=== PATIENT | male | born 1955 | race Caucasian/White ===

== ENCOUNTER 2024-03-07 12:59 | Inpatient (IN) | payer MEDICARE, OTHER ==
[~2024-03-07] VITALS: Ht 177.8 cm; Wt 162.4 kg
[~2024-03-07 12:59] MED LIST: LIDOCAINE HCL 2% LOCAL INJ 5 ML SDV VIAL INJ ONE; PROPOFOL IV EMULSION 10 MG/ML 20 ML VIAL ONE
[2024-03-07 15:13] LABS: BASOPHILS % 0.2 % (0.0-1.0); EOSINOPHILS # (AUTO) 0.1 (0.0-0.4); EOSINOPHILS % 1.1 % (0.0-6.0); HEMATOCRIT 38.4 % (38.2-49.6); HEMOGLOBIN 11.3 g/dL (14.0-18.0); LYMPHOCYTES % 8.9 % (18.0-39.1); MEAN CORPUSCULAR HEMOGLOBIN 27.4 pg (28-32); MEAN CORPUSCULAR HGB CONC 29.4 g/dL (31-35); MEAN CORPUSCULAR VOLUME 93.2 fL (81-99); MONOCYTES # (AUTO) 0.8 (0.2-0.8); NEUTROPHILS # (AUTO) 9.4 (2.1-6.9); NEUTROPHILS % 81.8 % (38.7-80.0); PLATELET COUNT 227 x10e3/uL (140-360); RED BLOOD COUNT 4.12 x10e6/uL (4.3-5.7); RED CELL DISTRIBUTION WIDTH 14.5 % (11.7-14.4); WHITE BLOOD COUNT 11.47 x10e3/uL (4.8-10.8)
[2024-03-07 15:24] LABS: INR 2.14; PROTHROMBIN TIME 25.1 seconds (11.9-14.5)
[2024-03-07 15:36] LABS: ALBUMIN 3.4 g/dL (3.5-5.0); ALBUMIN/GLOBULIN RATIO 0.9 (0.8-2.0); ANION GAP 14.7 mmol/L (8-16); BILIRUBIN,TOTAL 0.6 mg/dL (0.2-1.2); CALCIUM 8.7 mg/dL (8.4-10.2); CREATININE, SERUM 1.77 mg/dL (0.72-1.25); POTASSIUM 4.7 mmol/L (3.5-5.1)
[2024-03-07] MEDS: HYDROMORPHONE 1MG/1ML INJ IV PRN (15:36)
[2024-03-07] MEDS: Morphine 4mg INJECTION 4 MG/ML INJ IV PRN (15:39)
[2024-03-07] MEDS: ONDANSETRON HCL INJ 2MG/ML 2ML 2 MG/ML VIAL IV PRN (15:39)
[2024-03-07 16:25] VITALS: PULSE 85; RESP 18; O2SAT 95
[2024-03-07] MEDS: SODIUM CHLORIDE 0.9% 1000ML 1,000 ML IV SCH (16:46)
[2024-03-07] MEDS: PHYTONADIONE 5 MG TAB PO ONE (17:45)
[2024-03-07 20:00] VITALS: BP 124/71; PULSE 94; RESP 20; TEMP 98.1; O2SAT 95
[2024-03-07 20:12] VITALS: PULSE 88; RESP 18; O2SAT 95
[2024-03-07 21:00] VITALS: BP 124/71; PULSE 88; RESP 18; TEMP 98.1; O2SAT 95
[2024-03-07 22:33] LABS: INR 2.06; PROTHROMBIN TIME 24.3 seconds (11.9-14.5)
[2024-03-07] MEDS ORDERED: PHYTONADIONE 10 MG/ML AMP IV ONE (22:45)
[2024-03-07] MEDS ORDERED: DEXTROSE 50% SYRINGE 50 ML IV PRN (22:45)
[2024-03-07] MEDS: PHYTONADIONE IV ONE (23:01)
[2024-03-07] MEDS: SODIUM CHLORIDE 0.9% IV ONE (23:01)
[2024-03-07] MEDS ORDERED: HYDRALAZINE HCL 20 MG/ML VIAL IV PRN (23:15)
[2024-03-08] VITALS (32 sets, daily range): BP systolic 76–116; BP diastolic 35–80; PULSE 49–89; RESP 10–21; TEMP 97.8–98.4; O2SAT 93–100
[2024-03-08 01:34] LABS: CLARITY,URINE CLEAR (CLEAR); COLOR,URINE YELLOW (YELLOW); GLUCOSE, URINE NEGATIVE (NEGATIVE); KETONES,URINE NEGATIVE (NEGATIVE); LEUKOCYTE ESTERASE ,URINE NEGATIVE (NEGATIVE); NITRITE,URINE NEGATIVE (NEGATIVE); PH,URINE 6 (5 - 7); PROTEIN,URINE DIPSTICK 1+ (NEGATIVE)
[2024-03-08 01:35] LABS: BILIRUBIN,URINE NEGATIVE (NEGATIVE); URINE UROBILINOGEN 0.2 mg/dL (0.2 - 1)
[2024-03-08 01:52] LABS: BACTERIA,URINE MANY /HPF; EPITHELIAL CELLS,URINE FEW /LPF; WBC,URINE (MAN) 0-5 /HPF (0-5)
[2024-03-08 05:42] LABS: BASOPHILS % 0.2 % (0.0-1.0); EOSINOPHILS # (AUTO) 0.1 (0.0-0.4); EOSINOPHILS % 0.3 % (0.0-6.0); HEMATOCRIT 35.7 % (38.2-49.6); HEMOGLOBIN 10.5 g/dL (14.0-18.0); LYMPHOCYTES # (AUTO) 0.9 (1.0-3.2); LYMPHOCYTES % 4.5 % (18.0-39.1); MEAN CORPUSCULAR HEMOGLOBIN 27.9 pg (28-32); MEAN CORPUSCULAR HGB CONC 29.4 g/dL (31-35); MEAN CORPUSCULAR VOLUME 94.7 fL (81-99); MONOCYTES # (AUTO) 1.5 (0.2-0.8); MONOCYTES % 7.5 % (4.4-11.3); NEUTROPHILS % 86.6 % (38.7-80.0); PLATELET COUNT 225 x10e3/uL (140-360); RED BLOOD COUNT 3.77 x10e6/uL (4.3-5.7); RED CELL DISTRIBUTION WIDTH 14.6 % (11.7-14.4); WHITE BLOOD COUNT 19.62 x10e3/uL (4.8-10.8)
[2024-03-08 05:52] LABS: INR 1.43; PROTHROMBIN TIME 18.3 seconds (11.9-14.5)
[2024-03-08 06:17] LABS: ALBUMIN 3.1 g/dL (3.5-5.0); ALBUMIN/GLOBULIN RATIO 0.9 (0.8-2.0); ANION GAP 15.7 mmol/L (8-16); BILIRUBIN,TOTAL 0.5 mg/dL (0.2-1.2); CALCIUM 8.3 mg/dL (8.4-10.2); CREATININE, SERUM 2.65 mg/dL (0.72-1.25); MAGNESIUM 2.4 MG/DL (1.3-2.1); TOTAL PROTEIN 6.7 g/dL (6.5-8.1)
[2024-03-08 06:35] LABS: POTASSIUM 5.7 mmol/L (3.5-5.1)
[2024-03-08 06:44] LABS: FERRITIN 121.38 ng/mL (21.81-274.66)
[2024-03-08] MEDS: INSULIN LISPRO 100 UNIT/1 ML 3ML VIAL SQ SCH (07:30)
[2024-03-08 09:15] LABS: ABG HCO3 29 mmol/L (22-26); ABG PCO2 66 mmHg (35-45); ABG PH 7.25 (7.35-7.45); ABG PO2 67 mmHg (80-105); ABG TCO2 31
[2024-03-08] MEDS: DEXTROSE 50% SYRINGE 50 ML IV ONE (09:31)
[2024-03-08] MEDS: INSULIN REGULAR, HUMAN 100 UNIT/1 ML IV ONE (09:34)
[2024-03-08 13:35] LABS: ANION GAP 16.3 mmol/L (8-16); CALCIUM 8.1 mg/dL (8.4-10.2); CREATININE, SERUM 2.92 mg/dL (0.72-1.25)
[2024-03-08 13:36] LABS: POTASSIUM 5.3 mmol/L (3.5-5.1)
[2024-03-08 14:11] LABS: ANION GAP 18.2 mmol/L (8-16); CALCIUM 8.1 mg/dL (8.4-10.2); CREATININE, SERUM 2.89 mg/dL (0.72-1.25)
[2024-03-08 14:12] LABS: POTASSIUM 5.2 mmol/L (3.5-5.1)
[2024-03-08 14:48] LABS: ABG HCO3 29 mmol/L (22-26); ABG PCO2 72 mmHg (35-45); ABG PH 7.21 (7.35-7.45); ABG PO2 102 mmHg (80-105); ABG TCO2 31
[2024-03-08] MEDS: SODIUM CHLORIDE 0.9% 1000ML 1,000 ML IV ONE (14:57)
[2024-03-08] MEDS: METHYLPREDNISOLONE SOD SUCC 125 MG/2ML VIAL IV ONE (17:54)
[2024-03-08 18:22] LABS: CREATININE,URINE RANDOM 102.35 mg/dL (63-166); TOTAL PROTEIN, URINE 24.9 mg/dL (1-14)
[2024-03-09] VITALS (23 sets, daily range): BP systolic 100–134; BP diastolic 50–115; PULSE 71–86; RESP 12–20; TEMP 97.9–98.3; O2SAT 97–100
[2024-03-09 07:12] LABS: BASOPHILS % 0.1 % (0.0-1.0); HEMATOCRIT 31.8 % (38.2-49.6); HEMOGLOBIN 9.2 g/dL (14.0-18.0); LYMPHOCYTES # (AUTO) 0.5 (1.0-3.2); LYMPHOCYTES % 3.8 % (18.0-39.1); MEAN CORPUSCULAR HEMOGLOBIN 27.3 pg (28-32); MEAN CORPUSCULAR HGB CONC 28.9 g/dL (31-35); MEAN CORPUSCULAR VOLUME 94.4 fL (81-99); MONOCYTES # (AUTO) 0.3 (0.2-0.8); MONOCYTES % 1.9 % (4.4-11.3); NEUTROPHILS # (AUTO) 13.1 (2.1-6.9); PLATELET COUNT 173 x10e3/uL (140-360); RED BLOOD COUNT 3.37 x10e6/uL (4.3-5.7); RED CELL DISTRIBUTION WIDTH 14.2 % (11.7-14.4); WHITE BLOOD COUNT 14.04 x10e3/uL (4.8-10.8)
[2024-03-09 07:34] LABS: INR 1.06; PROTHROMBIN TIME 14.5 seconds (11.9-14.5)
[2024-03-09 07:47] LABS: ALBUMIN 2.9 g/dL (3.5-5.0); ALBUMIN/GLOBULIN RATIO 0.8 (0.8-2.0); ANION GAP 17.4 mmol/L (8-16); BILIRUBIN,TOTAL 0.6 mg/dL (0.2-1.2); CALCIUM 8.2 mg/dL (8.4-10.2); CREATININE, SERUM 3.01 mg/dL (0.72-1.25); MAGNESIUM 2.4 MG/DL (1.3-2.1); TOTAL PROTEIN 6.4 g/dL (6.5-8.1)
[2024-03-09 07:50] LABS: POTASSIUM 5.4 mmol/L (3.5-5.1)
[2024-03-09 08:42] LABS: ABG PH 7.24 (7.35-7.45)
[2024-03-09 08:43] LABS: ABG HCO3 28 mmol/L (22-26); ABG PCO2 66 mmHg (35-45); ABG PO2 93 mmHg (80-105); ABG TCO2 30
[2024-03-09] MEDS: SODIUM CHLORIDE 0.9% 1000ML 1,000 ML IV ONE (13:32)
[2024-03-09] MEDS: HEPARIN 25,000 UNIT/D5W 250ML 1,500 UNIT in DEXTROSE 5% 250ML 250 ML IV SCH (14:03)
[2024-03-09 14:41] LABS: INR 1.06; PROTHROMBIN TIME 14.5 seconds (11.9-14.5)
[2024-03-09 21:07] LABS: ALBUMIN 2.8 g/dL (3.5-5.0); ALBUMIN/GLOBULIN RATIO 0.8 (0.8-2.0); ANION GAP 16.2 mmol/L (8-16); BILIRUBIN,TOTAL 0.5 mg/dL (0.2-1.2); CALCIUM 8.3 mg/dL (8.4-10.2); CREATININE, SERUM 2.78 mg/dL (0.72-1.25); TOTAL PROTEIN 6.3 g/dL (6.5-8.1)
[2024-03-09 21:21] LABS: POTASSIUM 5.2 mmol/L (3.5-5.1)
[2024-03-10] VITALS (26 sets, daily range): BP systolic 97–146; BP diastolic 49–78; PULSE 37–124; RESP 16–22; TEMP 97.9–98.6; O2SAT 95–100
[2024-03-10 05:27] LABS: INR 1.01
[2024-03-10 06:36] LABS: BASOPHILS % 0.1 % (0.0-1.0); HEMATOCRIT 29.2 % (38.2-49.6); HEMOGLOBIN 8.4 g/dL (14.0-18.0); LYMPHOCYTES # (AUTO) 0.9 (1.0-3.2); LYMPHOCYTES % 6.5 % (18.0-39.1); MEAN CORPUSCULAR HEMOGLOBIN 27.2 pg (28-32); MEAN CORPUSCULAR HGB CONC 28.8 g/dL (31-35); MEAN CORPUSCULAR VOLUME 94.5 fL (81-99); MONOCYTES # (AUTO) 1.1 (0.2-0.8); MONOCYTES % 8.2 % (4.4-11.3); NEUTROPHILS # (AUTO) 11.3 (2.1-6.9); NEUTROPHILS % 84.6 % (38.7-80.0); PLATELET COUNT 172 x10e3/uL (140-360); RED BLOOD COUNT 3.09 x10e6/uL (4.3-5.7); RED CELL DISTRIBUTION WIDTH 14.5 % (11.7-14.4); WHITE BLOOD COUNT 13.35 x10e3/uL (4.8-10.8)
[2024-03-10 06:54] LABS: ALBUMIN 2.7 g/dL (3.5-5.0); ALBUMIN/GLOBULIN RATIO 0.8 (0.8-2.0); ANION GAP 11.8 mmol/L (8-16); BILIRUBIN,TOTAL 0.4 mg/dL (0.2-1.2); CALCIUM 8.2 mg/dL (8.4-10.2); CREATININE, SERUM 2.74 mg/dL (0.72-1.25); POTASSIUM 4.8 mmol/L (3.5-5.1)
[2024-03-10 08:56] LABS: ABG HCO3 29 mmol/L (22-26); ABG PCO2 67 mmHg (35-45); ABG PH 7.25 (7.35-7.45); ABG PO2 124 mmHg (80-105); ABG TCO2 31
[2024-03-10] MEDS: METHYLPREDNISOLONE SOD SUCC 40 MG/ML VIAL 1ML IV ONE (10:16)
[2024-03-10] MEDS: SODIUM CHLORIDE 0.9% 1000ML 1,000 ML IV ONE (10:16)
[2024-03-10] MEDS: ALBUTEROL/IPRATROPIUM 3 ML NEB NEB PRN (10:54)
[2024-03-11] VITALS (25 sets, daily range): BP systolic 98–169; BP diastolic 48–103; PULSE 48–121; RESP 4–27; TEMP 97.6–98.3; O2SAT 92–100
[2024-03-11 07:08] LABS: BASOPHILS % 0.1 % (0.0-1.0); HEMATOCRIT 27.8 % (38.2-49.6); HEMOGLOBIN 8.2 g/dL (14.0-18.0); LYMPHOCYTES # (AUTO) 0.8 (1.0-3.2); LYMPHOCYTES % 8.7 % (18.0-39.1); MEAN CORPUSCULAR HEMOGLOBIN 27.4 pg (28-32); MEAN CORPUSCULAR HGB CONC 29.5 g/dL (31-35); MONOCYTES # (AUTO) 0.8 (0.2-0.8); MONOCYTES % 9.1 % (4.4-11.3); NEUTROPHILS % 81.3 % (38.7-80.0); PLATELET COUNT 159 x10e3/uL (140-360); RED BLOOD COUNT 2.99 x10e6/uL (4.3-5.7); RED CELL DISTRIBUTION WIDTH 14.6 % (11.7-14.4); WHITE BLOOD COUNT 8.66 x10e3/uL (4.8-10.8)
[2024-03-11 07:39] LABS: ALBUMIN 2.8 g/dL (3.5-5.0); ALBUMIN/GLOBULIN RATIO 0.8 (0.8-2.0); BILIRUBIN,TOTAL 0.6 mg/dL (0.2-1.2); CALCIUM 8.8 mg/dL (8.4-10.2); CREATININE, SERUM 2.3 mg/dL (0.72-1.25); TOTAL PROTEIN 6.3 g/dL (6.5-8.1)
[2024-03-11 08:42] LABS: INR 1.02; PROTHROMBIN TIME 14.1 seconds (11.9-14.5)
[2024-03-11 08:45] LABS: ABG HCO3 28 mmol/L (22-26); ABG PCO2 57 mmHg (35-45); ABG PO2 94 mmHg (80-105); ABG TCO2 30
[2024-03-11 09:58] LABS: TOTAL PROTEIN 24HR, URINE 456.7 mg/24hr (50-100); TOTAL PROTEIN, URINE 26.1 mg/dL (1-14)
[2024-03-11] MEDS: SODIUM CHLORIDE 0.45% 1,000 ML IV ONE (10:25)
[2024-03-11] MEDS ORDERED: Sodium Chloride 0.9% 50ML Bag ONE (18:47)
[2024-03-11] MEDS ORDERED: PIPERACILLIN/TAZOBACTAM 3.375 GM VIAL ONE (18:47)
[2024-03-11] MEDS ORDERED: SODIUM CHLORIDE 0.9% 1000 ML BAG ONE (18:47)
[2024-03-12] VITALS (47 sets, daily range): BP systolic 109–146; BP diastolic 55–132; PULSE 46–80; RESP 9–23; TEMP 97.7–98.4; O2SAT 97–100
[2024-03-12 06:19] LABS: BASOPHILS % 0.1 % (0.0-1.0); EOSINOPHILS # (AUTO) 0.1 (0.0-0.4); EOSINOPHILS % 0.6 % (0.0-6.0); HEMATOCRIT 25.2 % (38.2-49.6); LYMPHOCYTES # (AUTO) 1.3 (1.0-3.2); LYMPHOCYTES % 16.3 % (18.0-39.1); MEAN CORPUSCULAR HEMOGLOBIN 27.6 pg (28-32); MEAN CORPUSCULAR HGB CONC 29.8 g/dL (31-35); MEAN CORPUSCULAR VOLUME 92.6 fL (81-99); MONOCYTES # (AUTO) 0.7 (0.2-0.8); MONOCYTES % 8.8 % (4.4-11.3); NEUTROPHILS # (AUTO) 5.8 (2.1-6.9); NEUTROPHILS % 73.6 % (38.7-80.0); PLATELET COUNT 155 x10e3/uL (140-360); RED BLOOD COUNT 2.72 x10e6/uL (4.3-5.7); RED CELL DISTRIBUTION WIDTH 14.6 % (11.7-14.4); WHITE BLOOD COUNT 7.93 x10e3/uL (4.8-10.8)
[2024-03-12 06:24] LABS: HEMOGLOBIN 7.5 g/dL (14.0-18.0)
[2024-03-12 06:43] LABS: ALBUMIN 2.7 g/dL (3.5-5.0); ALBUMIN/GLOBULIN RATIO 0.9 (0.8-2.0); ANION GAP 10.4 mmol/L (8-16); BILIRUBIN,TOTAL 0.6 mg/dL (0.2-1.2); CALCIUM 8.2 mg/dL (8.4-10.2); CREATININE, SERUM 1.88 mg/dL (0.72-1.25); POTASSIUM 4.4 mmol/L (3.5-5.1); TOTAL PROTEIN 5.7 g/dL (6.5-8.1)
[2024-03-12 08:28] LABS: INR 0.97; PROTHROMBIN TIME 13.6 seconds (11.9-14.5)
[2024-03-12 14:12] LABS: ABG PH 7.31 (7.35-7.45)
[2024-03-12 14:13] LABS: ABG HCO3 28 mmol/L (22-26); ABG PCO2 57 mmHg (35-45); ABG PO2 151 mmHg (80-105); ABG TCO2 30
[2024-03-12] MEDS ORDERED: Sodium Chloride 0.9% 50ML Bag ONE ×2 (14:16→16:00)
[2024-03-12] MEDS ORDERED: PIPERACILLIN/TAZOBACTAM 3.375 GM VIAL ONE ×2 (14:16→16:00)
[2024-03-12] MEDS ORDERED: SODIUM CHLORIDE 0.9% 1000 ML BAG ONE (16:00)
[2024-03-12] MEDS ORDERED: Azithromycin IV 500 MG 10 ML VIAL ONE (16:00)
[2024-03-13] VITALS (29 sets, daily range): BP systolic 111–178; BP diastolic 51–124; PULSE 55–98; RESP 15–25; TEMP 97.5–98.5; O2SAT 95–100
[2024-03-13 06:36] LABS: BASOPHILS % 0.2 % (0.0-1.0); EOSINOPHILS # (AUTO) 0.2 (0.0-0.4); EOSINOPHILS % 1.6 % (0.0-6.0); HEMATOCRIT 24.8 % (38.2-49.6); HEMOGLOBIN 7.6 g/dL (14.0-18.0); INR 0.98; LYMPHOCYTES # (AUTO) 0.9 (1.0-3.2); LYMPHOCYTES % 9.7 % (18.0-39.1); MEAN CORPUSCULAR HGB CONC 30.6 g/dL (31-35); MEAN CORPUSCULAR VOLUME 91.5 fL (81-99); MONOCYTES # (AUTO) 0.8 (0.2-0.8); MONOCYTES % 8.1 % (4.4-11.3); NEUTROPHILS # (AUTO) 7.5 (2.1-6.9); NEUTROPHILS % 79.9 % (38.7-80.0); PLATELET COUNT 148 x10e3/uL (140-360); PROTHROMBIN TIME 13.7 seconds (11.9-14.5); RED BLOOD COUNT 2.71 x10e6/uL (4.3-5.7); RED CELL DISTRIBUTION WIDTH 14.4 % (11.7-14.4); WHITE BLOOD COUNT 9.36 x10e3/uL (4.8-10.8)
[2024-03-13 07:03] LABS: ALBUMIN 2.7 g/dL (3.5-5.0); ALBUMIN/GLOBULIN RATIO 0.9 (0.8-2.0); ANION GAP 12.5 mmol/L (8-16); BILIRUBIN,TOTAL 0.9 mg/dL (0.2-1.2); CALCIUM 8.4 mg/dL (8.4-10.2); CREATININE, SERUM 1.68 mg/dL (0.72-1.25); MAGNESIUM 2.3 MG/DL (1.3-2.1); POTASSIUM 4.5 mmol/L (3.5-5.1); TOTAL PROTEIN 5.8 g/dL (6.5-8.1)
[2024-03-14] VITALS (34 sets, daily range): BP systolic 94–129; BP diastolic 50–66; PULSE 37–182; RESP 14–27; TEMP 97.9–98.5; O2SAT 91–100
[2024-03-14 06:32] LABS: BASOPHILS % 0.2 % (0.0-1.0); EOSINOPHILS # (AUTO) 0.3 (0.0-0.4); EOSINOPHILS % 2.4 % (0.0-6.0); HEMATOCRIT 23.3 % (38.2-49.6); LYMPHOCYTES # (AUTO) 1.1 (1.0-3.2); LYMPHOCYTES % 9.1 % (18.0-39.1); MEAN CORPUSCULAR HEMOGLOBIN 27.3 pg (28-32); NEUTROPHILS # (AUTO) 9.4 (2.1-6.9); NEUTROPHILS % 79.5 % (38.7-80.0); PLATELET COUNT 151 x10e3/uL (140-360); RED BLOOD COUNT 2.56 x10e6/uL (4.3-5.7); RED CELL DISTRIBUTION WIDTH 14.4 % (11.7-14.4); WHITE BLOOD COUNT 11.85 x10e3/uL (4.8-10.8)
[2024-03-14 07:04] LABS: ANION GAP 10.3 mmol/L (8-16); CALCIUM 8.2 mg/dL (8.4-10.2); CREATININE, SERUM 1.6 mg/dL (0.72-1.25); POTASSIUM 4.3 mmol/L (3.5-5.1)
[2024-03-14 07:12] LABS: INR 1.02; PROTHROMBIN TIME 14.1 seconds (11.9-14.5)
[2024-03-14] MEDS: SODIUM CHLORIDE 0.9% 250ML 250 ML IV ONE (09:57)
[2024-03-14] MEDS ORDERED: ONDANSETRON HCL INJ 2MG/ML 2ML 2 MG/ML VIAL ONE (11:37)
[2024-03-14] MEDS ORDERED: DEXAMETHASONE SOD PHOS INJ 4 MG/ML SDV ONE (11:37)
[2024-03-14] MEDS ORDERED: EPHEDRINE SULFATE INJ 50 MG/ML VIAL ONE (11:37)
[2024-03-14] MEDS ORDERED: PROPOFOL IV EMULSION 10 MG/ML 20 ML VIAL ONE (11:37)
[2024-03-14] MEDS ORDERED: SEVOFLURANE INHAL SOLN 250 ML PEN BTL ONE (11:37)
[2024-03-14] MEDS ORDERED: LIDOCAINE HCL 2% LOCAL INJ 5 ML SDV VIAL INJ ONE (11:37)
[2024-03-14] MEDS ORDERED: ROCURONIUM BROMIDE 10 MG/ML 5ML VIAL IV ONE (11:37)
[2024-03-14] MEDS ORDERED: SUCCINYLCHOLINE CHLORIDE 20 MG/ML 10ML VIAL ONE (11:37)
[2024-03-14] MEDS ORDERED: SODIUM CHLORIDE 0.9% INJ 250 ML BAG ONE (12:59)
[2024-03-14] MEDS ORDERED: Morphine 10mg syringe 10 MG/ML INJ ONE (12:59)
[2024-03-14] MEDS ORDERED: Sodium Chloride 0.9% 50ML Bag ONE (12:59)
[2024-03-14] MEDS ORDERED: HYDROMORPHONE 1MG/1ML INJ ONE (12:59)
[2024-03-14] MEDS ORDERED: HEPARIN 25,000 UNIT DRIP IV ONE (12:59)
[2024-03-14] MEDS ORDERED: MIDAZOLAM HCL 5 MG/ML VIAL ONE (12:59)
[2024-03-14] MEDS ORDERED: PIPERACILLIN/TAZOBACTAM 3.375 GM VIAL ONE (12:59)
[2024-03-14] MEDS ORDERED: FENTANYL CITRATE/PF 100MCG/2 ML INJ ONE (13:01)
[2024-03-14] MEDS ORDERED: ROPIVACAINE 0.5% 5 MG/ML 30 ML SDV ONE (13:53)
[2024-03-14] MEDS ORDERED: LIDOCAINE HCL 2% LOCAL 20 ML VIAL ONE (13:53)
[2024-03-14] MEDS ORDERED: SUGAMMADEX SODIUM 200 MG/2 ML VIAL IV ONE (16:59)
[2024-03-14] MEDS ORDERED: Vancomycin IV 1 GM VIAL ONE (17:29)
[2024-03-14] MEDS: PROPOFOL IV EMULSION 10MG/ML 100 ML IV PRN (18:29)
[2024-03-14] MEDS: FENTANYL 2000MCG/NS 250 250 ML IV PRN (18:44)
[2024-03-14 19:34] LABS: ABG HCO3 26 mmol/L (22-26); ABG PCO2 60 mmHg (35-45); ABG PH 7.24 (7.35-7.45); ABG PO2 114 mmHg (80-105); ABG TCO2 28
[2024-03-14 19:44] LABS: HEMATOCRIT 24.5 % (38.2-49.6); HEMOGLOBIN 7.5 g/dL (14.0-18.0)
[2024-03-14 20:43] LABS: ABG HCO3 24 mmol/L (22-26); ABG PCO2 45 mmHg (35-45); ABG PH 7.33 (7.35-7.45); ABG PO2 107 mmHg (80-105); ABG TCO2 25
[2024-03-14] MEDS: HEPARIN 25,000 UNIT/D5W 250ML 250 ML IV SCH (21:04)
[2024-03-15] VITALS (53 sets, daily range): BP systolic 88–138; BP diastolic 47–107; PULSE 40–108; RESP 14–37; TEMP 98.2–98.6; O2SAT 83–100
[2024-03-15 06:55] LABS: BASOPHILS % 0.1 % (0.0-1.0); EOSINOPHILS % 0.1 % (0.0-6.0); LYMPHOCYTES # (AUTO) 0.5 (1.0-3.2); LYMPHOCYTES % 3.8 % (18.0-39.1); MEAN CORPUSCULAR HEMOGLOBIN 27.8 pg (28-32); MEAN CORPUSCULAR HGB CONC 30.9 g/dL (31-35); MEAN CORPUSCULAR VOLUME 89.9 fL (81-99); MONOCYTES # (AUTO) 0.7 (0.2-0.8); MONOCYTES % 5.5 % (4.4-11.3); NEUTROPHILS # (AUTO) 11.9 (2.1-6.9); NEUTROPHILS % 89.6 % (38.7-80.0); PLATELET COUNT 143 x10e3/uL (140-360); RED BLOOD COUNT 2.27 x10e6/uL (4.3-5.7); RED CELL DISTRIBUTION WIDTH 14.6 % (11.7-14.4); WHITE BLOOD COUNT 13.31 x10e3/uL (4.8-10.8)
[2024-03-15 06:57] LABS: HEMATOCRIT 21.1 % (38.2-49.6); HEMOGLOBIN 6.5 g/dL (14.0-18.0)
[2024-03-15 07:07] LABS: INR 1.17; PROTHROMBIN TIME 15.7 seconds (11.9-14.5)
[2024-03-15 07:19] LABS: ALBUMIN 2.1 g/dL (3.5-5.0); ALBUMIN/GLOBULIN RATIO 0.7 (0.8-2.0); ALKALINE PHOSPHATASE 39 IU/L (40-150); ANION GAP 12.6 mmol/L (8-16); BILIRUBIN,TOTAL 1.1 mg/dL (0.2-1.2); BLOOD UREA NITROGEN 29 mg/dL (7-26); BUN/CREATININE RATIO 17 (6-25); CALCIUM 7.8 mg/dL (8.4-10.2); CARBON DIOXIDE 24 mmol/L (22-29); CHLORIDE 105 mmol/L (98-107); CREATININE, SERUM 1.67 mg/dL (0.72-1.25); EST GLOMERULAR FILTRATION RATE 44 ML/MIN (>=60); GLUCOSE 202 mg/dL (74-118); POTASSIUM 4.6 mmol/L (3.5-5.1); SODIUM 137 mmol/L (136-145); TOTAL PROTEIN 5.1 g/dL (6.5-8.1)
[2024-03-15 07:20] LABS: ALANINE AMINOTRANSFERASE < 6 IU/L (0-55)
[2024-03-15] MEDS: AMIODARONE HCL 200 MG TAB PO SCH (09:00)
[2024-03-15 09:01] LABS: ABG HCO3 26 mmol/L (22-26); ABG PCO2 51 mmHg (35-45); ABG PH 7.31 (7.35-7.45); ABG PO2 147 mmHg (80-105); ABG TCO2 27
[2024-03-15] MEDS: SODIUM CHLORIDE 0.9% 250ML 250 ML IV ONE (10:41)
[2024-03-15 12:23] LABS: ABG HCO3 26 mmol/L (22-26); ABG PCO2 49 mmHg (35-45); ABG PH 7.33 (7.35-7.45); ABG PO2 141 mmHg (80-105); ABG TCO2 27
[2024-03-15 20:46] LABS: HEMATOCRIT 23.1 % (38.2-49.6); HEMOGLOBIN 7.3 g/dL (14.0-18.0)
[2024-03-15] MEDS ORDERED: HEPARIN 25,000 UNIT/D5W 250ML 25,000 UNIT in DEXTROSE 5% 250ML 250 ML IV STA (21:10)
[2024-03-16] VITALS (44 sets, daily range): BP systolic 84–144; BP diastolic 40–99; PULSE 43–120; RESP 15–27; TEMP 97.8–98; O2SAT 89–100
[2024-03-16 06:47] LABS: BASOPHILS % 0.1 % (0.0-1.0); EOSINOPHILS # (AUTO) 0.4 (0.0-0.4); EOSINOPHILS % 2.5 % (0.0-6.0); HEMATOCRIT 23.5 % (38.2-49.6); HEMOGLOBIN 7.1 g/dL (14.0-18.0); LYMPHOCYTES # (AUTO) 1.4 (1.0-3.2); LYMPHOCYTES % 8.3 % (18.0-39.1); MEAN CORPUSCULAR HEMOGLOBIN 28.5 pg (28-32); MEAN CORPUSCULAR HGB CONC 30.2 g/dL (31-35); MEAN CORPUSCULAR VOLUME 94.4 fL (81-99); MONOCYTES # (AUTO) 1.4 (0.2-0.8); MONOCYTES % 8.3 % (4.4-11.3); NEUTROPHILS # (AUTO) 13.5 (2.1-6.9); NEUTROPHILS % 79.8 % (38.7-80.0); PLATELET COUNT 160 x10e3/uL (140-360); RED BLOOD COUNT 2.49 x10e6/uL (4.3-5.7); RED CELL DISTRIBUTION WIDTH 15.5 % (11.7-14.4); WHITE BLOOD COUNT 16.89 x10e3/uL (4.8-10.8)
[2024-03-16 06:51] LABS: INR 1.03; PROTHROMBIN TIME 14.2 seconds (11.9-14.5)
[2024-03-16 06:52] LABS: PARTIAL THROMBOPLASTIN TIME 41.4 seconds (23.8-35.5)
[2024-03-16 07:11] LABS: ALBUMIN 2.4 g/dL (3.5-5.0); ALBUMIN/GLOBULIN RATIO 0.7 (0.8-2.0); ANION GAP 15.3 mmol/L (8-16); BILIRUBIN,TOTAL 0.8 mg/dL (0.2-1.2); CALCIUM 7.9 mg/dL (8.4-10.2); CREATININE, SERUM 1.72 mg/dL (0.72-1.25); MAGNESIUM 2.1 MG/DL (1.3-2.1); POTASSIUM 4.3 mmol/L (3.5-5.1); TOTAL PROTEIN 5.8 g/dL (6.5-8.1)
[2024-03-16] MEDS: SODIUM CHLORIDE 0.9% 1000ML 1,000 ML ONE (10:02)
[2024-03-16] MEDS: PIPERACILLIN/TAZOBACTAM 3.375 GM VIAL ONE ×16 (10:03→10:14)
[2024-03-16] MEDS: Azithromycin IV 500 MG 10 ML VIAL ONE ×2 (10:03→10:06)
[2024-03-16] MEDS: SODIUM CHLORIDE 0.9% 250ML 250 ML ONE ×3 (10:03→10:14)
[2024-03-16] MEDS: HEPARIN 25,000 UNIT DRIP IV ONE ×2 (10:08→10:13)
[2024-03-16] MEDS: HYDROMORPHONE 1MG/1ML INJ ONE (10:09)
[2024-03-16] MEDS: PROPOFOL IV EMULSION 10MG/ML 100 ML ONE ×2 (10:10)
[2024-03-16] MEDS: SODIUM CHLORIDE 0.9% 500ML 500 ML IV ONE (10:13)
[2024-03-16 16:08] LABS: BASOPHILS % 0.1 % (0.0-1.0); EOSINOPHILS # (AUTO) 0.5 (0.0-0.4); EOSINOPHILS % 3.3 % (0.0-6.0); HEMATOCRIT 23.9 % (38.2-49.6); HEMOGLOBIN 7.5 g/dL (14.0-18.0); LYMPHOCYTES # (AUTO) 1.2 (1.0-3.2); LYMPHOCYTES % 8.3 % (18.0-39.1); MEAN CORPUSCULAR HEMOGLOBIN 28.5 pg (28-32); MEAN CORPUSCULAR HGB CONC 31.4 g/dL (31-35); MEAN CORPUSCULAR VOLUME 90.9 fL (81-99); MONOCYTES # (AUTO) 1.4 (0.2-0.8); MONOCYTES % 9.9 % (4.4-11.3); NEUTROPHILS % 76.8 % (38.7-80.0); PLATELET COUNT 175 x10e3/uL (140-360); RED BLOOD COUNT 2.63 x10e6/uL (4.3-5.7); RED CELL DISTRIBUTION WIDTH 15.7 % (11.7-14.4)
[2024-03-16] MEDS: SODIUM CHLORIDE 0.9% 250ML 250 ML IV ONE (16:15)
[2024-03-16] MEDS: ACETAMINOPHEN 325 MG TAB PO PRN (21:19)
[2024-03-17] VITALS (14 sets, daily range): BP systolic 102–135; BP diastolic 50–78; PULSE 49–80; RESP 9–25; TEMP 98–98.4; O2SAT 84–100
[2024-03-17 04:48] LABS: BASOPHILS % 0.2 % (0.0-1.0); EOSINOPHILS # (AUTO) 0.5 (0.0-0.4); EOSINOPHILS % 3.7 % (0.0-6.0); HEMATOCRIT 26.8 % (38.2-49.6); HEMOGLOBIN 7.9 g/dL (14.0-18.0); LYMPHOCYTES # (AUTO) 1.8 (1.0-3.2); LYMPHOCYTES % 13.5 % (18.0-39.1); MEAN CORPUSCULAR HEMOGLOBIN 27.4 pg (28-32); MEAN CORPUSCULAR HGB CONC 29.5 g/dL (31-35); MEAN CORPUSCULAR VOLUME 93.1 fL (81-99); MONOCYTES # (AUTO) 1.3 (0.2-0.8); NEUTROPHILS # (AUTO) 9.1 (2.1-6.9); NEUTROPHILS % 69.8 % (38.7-80.0); PLATELET COUNT 175 x10e3/uL (140-360); RED BLOOD COUNT 2.88 x10e6/uL (4.3-5.7); RED CELL DISTRIBUTION WIDTH 15.8 % (11.7-14.4); WHITE BLOOD COUNT 13.07 x10e3/uL (4.8-10.8)
[2024-03-17 05:09] LABS: ALBUMIN 2.4 g/dL (3.5-5.0); ALBUMIN/GLOBULIN RATIO 0.7 (0.8-2.0); ANION GAP 12.9 mmol/L (8-16); BILIRUBIN,TOTAL 0.9 mg/dL (0.2-1.2); CALCIUM 8.1 mg/dL (8.4-10.2); CREATININE, SERUM 1.64 mg/dL (0.72-1.25); POTASSIUM 3.9 mmol/L (3.5-5.1)
[2024-03-17] MEDS: METOPROLOL SUCCINATE 50 MG TAB XL PO SCH (08:36)
[2024-03-17] MEDS: LOPERAMIDE HCL 2 MG CAP PO PRN (17:21)
[2024-03-17] MEDS: HEPARIN 25,000 UNIT DRIP IV ONE (19:53)
[2024-03-18] VITALS (29 sets, daily range): BP systolic 92–140; BP diastolic 47–126; PULSE 44–108; RESP 9–24; TEMP 97.8–98.7; O2SAT 96–100
[2024-03-18 06:59] LABS: BASOPHILS % 0.1 % (0.0-1.0); EOSINOPHILS # (AUTO) 0.5 (0.0-0.4); EOSINOPHILS % 3.8 % (0.0-6.0); HEMATOCRIT 25.6 % (38.2-49.6); HEMOGLOBIN 7.8 g/dL (14.0-18.0); LYMPHOCYTES # (AUTO) 1.8 (1.0-3.2); LYMPHOCYTES % 14.8 % (18.0-39.1); MEAN CORPUSCULAR HEMOGLOBIN 28.4 pg (28-32); MEAN CORPUSCULAR HGB CONC 30.5 g/dL (31-35); MEAN CORPUSCULAR VOLUME 93.1 fL (81-99); MONOCYTES # (AUTO) 1.4 (0.2-0.8); MONOCYTES % 11.6 % (4.4-11.3); NEUTROPHILS # (AUTO) 8.1 (2.1-6.9); NEUTROPHILS % 66.2 % (38.7-80.0); PLATELET COUNT 199 x10e3/uL (140-360); RED BLOOD COUNT 2.75 x10e6/uL (4.3-5.7); RED CELL DISTRIBUTION WIDTH 15.9 % (11.7-14.4); WHITE BLOOD COUNT 12.17 x10e3/uL (4.8-10.8)
[2024-03-18 08:29] LABS: ALBUMIN 2.3 g/dL (3.5-5.0); ALBUMIN/GLOBULIN RATIO 0.7 (0.8-2.0); BILIRUBIN,TOTAL 0.8 mg/dL (0.2-1.2); CALCIUM 8.1 mg/dL (8.4-10.2); CREATININE, SERUM 1.74 mg/dL (0.72-1.25); TOTAL PROTEIN 5.7 g/dL (6.5-8.1)
[2024-03-18 11:38] LABS: ABG HCO3 29 mmol/L (22-26); ABG PCO2 67 mmHg (35-45); ABG PH 7.25 (7.35-7.45); ABG PO2 67 mmHg (80-105); ABG TCO2 31
[2024-03-18 11:38] LABS: ABG HCO3 29 mmol/L (22-26); ABG PCO2 67 mmHg (35-45); ABG PH 7.25 (7.35-7.45); ABG PO2 124 mmHg (80-105); ABG TCO2 31
[2024-03-18 11:38] LABS: ABG HCO3 28 mmol/L (22-26); ABG PCO2 66 mmHg (35-45); ABG PH 7.24 (7.35-7.45); ABG PO2 93 mmHg (80-105); ABG TCO2 30
[2024-03-18 11:38] LABS: ABG HCO3 29 mmol/L (22-26); ABG PCO2 72 mmHg (35-45); ABG PH 7.21 (7.35-7.45); ABG PO2 102 mmHg (80-105); ABG TCO2 31
[2024-03-18 11:39] LABS: ABG HCO3 28 mmol/L (22-26); ABG PCO2 57 mmHg (35-45); ABG PO2 94 mmHg (80-105); ABG TCO2 30
[2024-03-19] VITALS (19 sets, daily range): BP systolic 56–128; BP diastolic 35–103; PULSE 42–97; RESP 13–20; TEMP 97.3–98.6; O2SAT 77–100
[2024-03-19 06:46] LABS: BASOPHILS % 0.2 % (0.0-1.0); EOSINOPHILS # (AUTO) 0.5 (0.0-0.4); EOSINOPHILS % 3.3 % (0.0-6.0); HEMATOCRIT 26.5 % (38.2-49.6); LYMPHOCYTES # (AUTO) 1.8 (1.0-3.2); LYMPHOCYTES % 12.5 % (18.0-39.1); MEAN CORPUSCULAR HEMOGLOBIN 28.7 pg (28-32); MEAN CORPUSCULAR HGB CONC 30.2 g/dL (31-35); MONOCYTES # (AUTO) 1.5 (0.2-0.8); MONOCYTES % 10.1 % (4.4-11.3); NEUTROPHILS # (AUTO) 10.4 (2.1-6.9); NEUTROPHILS % 71.1 % (38.7-80.0); PLATELET COUNT 215 x10e3/uL (140-360); RED BLOOD COUNT 2.79 x10e6/uL (4.3-5.7); RED CELL DISTRIBUTION WIDTH 16.5 % (11.7-14.4); WHITE BLOOD COUNT 14.68 x10e3/uL (4.8-10.8)
[2024-03-19 07:23] LABS: ALBUMIN 2.4 g/dL (3.5-5.0); ALBUMIN/GLOBULIN RATIO 0.6 (0.8-2.0); ALKALINE PHOSPHATASE 54 IU/L (40-150); ANION GAP 14.1 mmol/L (8-16); BILIRUBIN,TOTAL 0.8 mg/dL (0.2-1.2); BLOOD UREA NITROGEN 22 mg/dL (7-26); BUN/CREATININE RATIO 11 (6-25); CARBON DIOXIDE 23 mmol/L (22-29); CHLORIDE 103 mmol/L (98-107); CREATININE, SERUM 2.06 mg/dL (0.72-1.25); EST GLOMERULAR FILTRATION RATE 34 ML/MIN (>=60); GLUCOSE 155 mg/dL (74-118); MAGNESIUM 2.2 MG/DL (1.3-2.1); POTASSIUM 4.1 mmol/L (3.5-5.1); SODIUM 136 mmol/L (136-145); TOTAL PROTEIN 6.3 g/dL (6.5-8.1)
[2024-03-19 07:28] LABS: ALANINE AMINOTRANSFERASE < 6 IU/L (0-55)
[2024-03-19] MEDS: AMIODARONE HCL 200 MG TAB PO SCH (08:16)
[2024-03-19] MEDS: WARFARIN SOD 5 MG TAB PO ONE (10:46)
[2024-03-20] VITALS (41 sets, daily range): BP systolic 80–143; BP diastolic 43–111; PULSE 35–74; RESP 10–23; TEMP 97.8–98.6; O2SAT 90–100
[2024-03-20 06:47] LABS: BASOPHILS % 0.2 % (0.0-1.0); EOSINOPHILS # (AUTO) 0.4 (0.0-0.4); EOSINOPHILS % 3.1 % (0.0-6.0); HEMATOCRIT 25.8 % (38.2-49.6); HEMOGLOBIN 7.8 g/dL (14.0-18.0); LYMPHOCYTES # (AUTO) 1.5 (1.0-3.2); LYMPHOCYTES % 11.3 % (18.0-39.1); MEAN CORPUSCULAR HEMOGLOBIN 28.7 pg (28-32); MEAN CORPUSCULAR HGB CONC 30.2 g/dL (31-35); MEAN CORPUSCULAR VOLUME 94.9 fL (81-99); MONOCYTES # (AUTO) 1.1 (0.2-0.8); NEUTROPHILS % 74.7 % (38.7-80.0); PLATELET COUNT 243 x10e3/uL (140-360); RED BLOOD COUNT 2.72 x10e6/uL (4.3-5.7); RED CELL DISTRIBUTION WIDTH 16.6 % (11.7-14.4)
[2024-03-20 06:56] LABS: INR 0.94; PROTHROMBIN TIME 13.2 seconds (11.9-14.5)
[2024-03-20 07:16] LABS: ANION GAP 14.2 mmol/L (8-16); CALCIUM 8.2 mg/dL (8.4-10.2); CREATININE, SERUM 2.01 mg/dL (0.72-1.25); POTASSIUM 4.2 mmol/L (3.5-5.1)
[2024-03-20 12:03] LABS: ABG PCO2 55 mmHg (35-45); ABG PH 7.27 (7.35-7.45)
[2024-03-20 12:04] LABS: ABG HCO3 26 mmol/L (22-26); ABG PO2 162 mmHg (80-105); ABG TCO2 27
[2024-03-20] MEDS: APIXABAN 5 MG TABLET PO SCH (16:58)
[2024-03-20] MEDS ORDERED: WARFARIN SOD 5 MG TAB PO SCH (17:00)
[2024-03-20] MEDS ORDERED: WARFARIN SOD 2 MG TAB PO SCH (17:00)
[2024-03-21] VITALS (53 sets, daily range): BP systolic 99–146; BP diastolic 34–111; PULSE 25–120; RESP 9–25; TEMP 97.3–98.1; O2SAT 83–100
[2024-03-21 07:03] LABS: BASOPHILS % 0.2 % (0.0-1.0); EOSINOPHILS # (AUTO) 0.4 (0.0-0.4); EOSINOPHILS % 3.1 % (0.0-6.0); HEMATOCRIT 26.1 % (38.2-49.6); HEMOGLOBIN 7.8 g/dL (14.0-18.0); LYMPHOCYTES # (AUTO) 1.3 (1.0-3.2); LYMPHOCYTES % 10.9 % (18.0-39.1); MEAN CORPUSCULAR HEMOGLOBIN 28.6 pg (28-32); MEAN CORPUSCULAR HGB CONC 29.9 g/dL (31-35); MEAN CORPUSCULAR VOLUME 95.6 fL (81-99); MONOCYTES # (AUTO) 0.9 (0.2-0.8); MONOCYTES % 7.7 % (4.4-11.3); NEUTROPHILS # (AUTO) 9.2 (2.1-6.9); NEUTROPHILS % 75.7 % (38.7-80.0); PLATELET COUNT 265 x10e3/uL (140-360); RED BLOOD COUNT 2.73 x10e6/uL (4.3-5.7); WHITE BLOOD COUNT 12.13 x10e3/uL (4.8-10.8)
[2024-03-21 07:32] LABS: ALBUMIN 2.5 g/dL (3.5-5.0); ALBUMIN/GLOBULIN RATIO 0.6 (0.8-2.0); ANION GAP 13.3 mmol/L (8-16); BILIRUBIN,TOTAL 0.8 mg/dL (0.2-1.2); CALCIUM 8.2 mg/dL (8.4-10.2); CREATININE, SERUM 2.07 mg/dL (0.72-1.25); MAGNESIUM 2.3 MG/DL (1.3-2.1); POTASSIUM 4.3 mmol/L (3.5-5.1); TOTAL PROTEIN 6.5 g/dL (6.5-8.1)
[2024-03-21] MEDS: AMIODARONE HCL 200 MG TAB PO SCH (08:43)
[2024-03-21] MEDS: FUROSEMIDE INJ 10 MG/ML 4 ML VIAL IV SCH (11:06)
[2024-03-21 15:29] LABS: ABG HCO3 26 mmol/L (22-26); ABG PCO2 59 mmHg (35-45); ABG PH 7.25 (7.35-7.45); ABG PO2 112 mmHg (80-105); ABG TCO2 27
[2024-03-21] MEDS: MELATONIN 5 MG TABLET PO SCH (20:03)
[2024-03-22] VITALS (29 sets, daily range): BP systolic 108–144; BP diastolic 41–112; PULSE 42–110; RESP 14–22; TEMP 97.7–98.9; O2SAT 72–100
[2024-03-22 07:20] LABS: BASOPHILS % 0.2 % (0.0-1.0); EOSINOPHILS # (AUTO) 0.3 (0.0-0.4); EOSINOPHILS % 2.3 % (0.0-6.0); HEMATOCRIT 25.5 % (38.2-49.6); HEMOGLOBIN 7.5 g/dL (14.0-18.0); LYMPHOCYTES % 9.2 % (18.0-39.1); MEAN CORPUSCULAR HEMOGLOBIN 28.6 pg (28-32); MEAN CORPUSCULAR HGB CONC 29.4 g/dL (31-35); MEAN CORPUSCULAR VOLUME 97.3 fL (81-99); MONOCYTES # (AUTO) 0.9 (0.2-0.8); MONOCYTES % 7.8 % (4.4-11.3); NEUTROPHILS # (AUTO) 8.9 (2.1-6.9); NEUTROPHILS % 78.8 % (38.7-80.0); PLATELET COUNT 247 x10e3/uL (140-360); RED BLOOD COUNT 2.62 x10e6/uL (4.3-5.7); RED CELL DISTRIBUTION WIDTH 17.2 % (11.7-14.4); WHITE BLOOD COUNT 11.32 x10e3/uL (4.8-10.8)
[2024-03-22 07:44] LABS: ANION GAP 13.4 mmol/L (8-16); CALCIUM 8.4 mg/dL (8.4-10.2); CREATININE, SERUM 2.09 mg/dL (0.72-1.25); POTASSIUM 4.4 mmol/L (3.5-5.1)
[2024-03-22] MEDS: MUPIROCIN 2% OINT 22 GM TUBE TOP SCH (09:00)
[2024-03-22 09:12] LABS: ABG HCO3 27 mmol/L (22-26); ABG PCO2 57 mmHg (35-45); ABG PH 7.29 (7.35-7.45); ABG PO2 78 mmHg (80-105); ABG TCO2 29
[2024-03-23] VITALS (27 sets, daily range): BP systolic 102–143; BP diastolic 50–80; PULSE 54–113; RESP 4–20; TEMP 97.9–98; O2SAT 90–100
[2024-03-23 04:55] LABS: BASOPHILS % 0.1 % (0.0-1.0); EOSINOPHILS # (AUTO) 0.3 (0.0-0.4); EOSINOPHILS % 2.7 % (0.0-6.0); HEMATOCRIT 24.4 % (38.2-49.6); HEMOGLOBIN 7.3 g/dL (14.0-18.0); LYMPHOCYTES % 10.2 % (18.0-39.1); MEAN CORPUSCULAR HEMOGLOBIN 28.6 pg (28-32); MEAN CORPUSCULAR HGB CONC 29.9 g/dL (31-35); MEAN CORPUSCULAR VOLUME 95.7 fL (81-99); MONOCYTES # (AUTO) 0.8 (0.2-0.8); MONOCYTES % 8.8 % (4.4-11.3); NEUTROPHILS # (AUTO) 7.2 (2.1-6.9); NEUTROPHILS % 76.1 % (38.7-80.0); PLATELET COUNT 240 x10e3/uL (140-360); RED BLOOD COUNT 2.55 x10e6/uL (4.3-5.7); RED CELL DISTRIBUTION WIDTH 17.2 % (11.7-14.4); WHITE BLOOD COUNT 9.51 x10e3/uL (4.8-10.8)
[2024-03-23 05:18] LABS: ANION GAP 14.2 mmol/L (8-16); CALCIUM 8.1 mg/dL (8.4-10.2); CREATININE, SERUM 2.29 mg/dL (0.72-1.25); POTASSIUM 4.2 mmol/L (3.5-5.1)
[2024-03-23 11:16] LABS: MICROCYTOSIS SLIGHT
[2024-03-23 11:17] LABS: HYPOCHROMASIA SLIGHT
[2024-03-24] VITALS (18 sets, daily range): BP systolic 115–136; BP diastolic 42–85; PULSE 51–78; RESP 11–23; TEMP 98–98.9; O2SAT 94–100
[2024-03-24 06:48] LABS: BASOPHILS % 0.1 % (0.0-1.0); EOSINOPHILS # (AUTO) 0.2 (0.0-0.4); HEMATOCRIT 24.1 % (38.2-49.6); HEMOGLOBIN 7.2 g/dL (14.0-18.0); LYMPHOCYTES # (AUTO) 1.1 (1.0-3.2); LYMPHOCYTES % 14.2 % (18.0-39.1); MEAN CORPUSCULAR HGB CONC 29.9 g/dL (31-35); MEAN CORPUSCULAR VOLUME 93.8 fL (81-99); MONOCYTES # (AUTO) 0.9 (0.2-0.8); MONOCYTES % 11.3 % (4.4-11.3); NEUTROPHILS # (AUTO) 5.3 (2.1-6.9); NEUTROPHILS % 70.1 % (38.7-80.0); PLATELET COUNT 264 x10e3/uL (140-360); RED BLOOD COUNT 2.57 x10e6/uL (4.3-5.7)
[2024-03-24 07:07] LABS: ALBUMIN 2.4 g/dL (3.5-5.0); ALBUMIN/GLOBULIN RATIO 0.6 (0.8-2.0); ANION GAP 14.2 mmol/L (8-16); BILIRUBIN,TOTAL 0.9 mg/dL (0.2-1.2); CALCIUM 8.4 mg/dL (8.4-10.2); CREATININE, SERUM 2.05 mg/dL (0.72-1.25); POTASSIUM 4.2 mmol/L (3.5-5.1); TOTAL PROTEIN 6.4 g/dL (6.5-8.1)
[2024-03-24 11:07] LABS: ABG HCO3 30 mmol/L (22-26); ABG PCO2 54 mmHg (35-45); ABG PH 7.35 (7.35-7.45); ABG PO2 131 mmHg (80-105); ABG TCO2 31
[2024-03-24] MEDS: DIPHENHYDRAMINE HCL 25 MG CAP PO PRN (19:44)
[2024-03-25] VITALS (29 sets, daily range): BP systolic 102–145; BP diastolic 56–98; PULSE 55–119; RESP 8–23; TEMP 98.1–98.6; O2SAT 89–100
[2024-03-25 06:09] LABS: BASOPHILS % 0.2 % (0.0-1.0); EOSINOPHILS # (AUTO) 0.2 (0.0-0.4); EOSINOPHILS % 3.5 % (0.0-6.0); HEMATOCRIT 24.9 % (38.2-49.6); HEMOGLOBIN 7.3 g/dL (14.0-18.0); MEAN CORPUSCULAR HGB CONC 29.3 g/dL (31-35); MEAN CORPUSCULAR VOLUME 95.4 fL (81-99); MONOCYTES # (AUTO) 0.8 (0.2-0.8); NEUTROPHILS # (AUTO) 4.2 (2.1-6.9); NEUTROPHILS % 65.7 % (38.7-80.0); PLATELET COUNT 269 x10e3/uL (140-360); RED BLOOD COUNT 2.61 x10e6/uL (4.3-5.7); RED CELL DISTRIBUTION WIDTH 16.9 % (11.7-14.4); WHITE BLOOD COUNT 6.33 x10e3/uL (4.8-10.8)
[2024-03-25] MEDS: KETOROLAC TROMETHAMINE 30 MG/ML VIAL IV ONE (06:16)
[2024-03-25 06:24] LABS: CALCIUM 8.3 mg/dL (8.4-10.2); POTASSIUM 4.1 mmol/L (3.5-5.1)
[2024-03-25 06:38] LABS: ANION GAP 15.1 mmol/L (8-16); BILIRUBIN,TOTAL 0.9 mg/dL (0.2-1.2); CREATININE, SERUM 2.14 mg/dL (0.72-1.25); TOTAL PROTEIN 6.4 g/dL (6.5-8.1)
[2024-03-25 06:56] LABS: ALBUMIN 2.4 g/dL (3.5-5.0); ALBUMIN/GLOBULIN RATIO 0.6 (0.8-2.0)
[2024-03-25] MEDS: FUROSEMIDE 40 MG TAB PO SCH (16:36)
[2024-03-25] MEDS: EPOETIN ALFA-EPBX 10,000 UNIT/ML VIAL SC SCH (16:37)
[2024-03-26] VITALS (31 sets, daily range): BP systolic 106–145; BP diastolic 43–81; PULSE 29–113; RESP 13–25; TEMP 97.7–98.2; O2SAT 90–100
[2024-03-26 06:29] LABS: BASOPHILS % 0.1 % (0.0-1.0); EOSINOPHILS # (AUTO) 0.3 (0.0-0.4); EOSINOPHILS % 3.4 % (0.0-6.0); HEMATOCRIT 24.6 % (38.2-49.6); HEMOGLOBIN 7.5 g/dL (14.0-18.0); LYMPHOCYTES # (AUTO) 0.9 (1.0-3.2); LYMPHOCYTES % 12.2 % (18.0-39.1); MEAN CORPUSCULAR HEMOGLOBIN 28.2 pg (28-32); MEAN CORPUSCULAR HGB CONC 30.5 g/dL (31-35); MEAN CORPUSCULAR VOLUME 92.5 fL (81-99); MONOCYTES # (AUTO) 0.8 (0.2-0.8); MONOCYTES % 10.2 % (4.4-11.3); NEUTROPHILS # (AUTO) 5.5 (2.1-6.9); NEUTROPHILS % 73.2 % (38.7-80.0); PLATELET COUNT 245 x10e3/uL (140-360); RED BLOOD COUNT 2.66 x10e6/uL (4.3-5.7); RED CELL DISTRIBUTION WIDTH 17.1 % (11.7-14.4); WHITE BLOOD COUNT 7.56 x10e3/uL (4.8-10.8)
[2024-03-26 07:02] LABS: ALBUMIN 2.4 g/dL (3.5-5.0); ALBUMIN/GLOBULIN RATIO 0.6 (0.8-2.0); BILIRUBIN,TOTAL 0.8 mg/dL (0.2-1.2); CALCIUM 8.2 mg/dL (8.4-10.2); CREATININE, SERUM 2.27 mg/dL (0.72-1.25); TOTAL PROTEIN 6.4 g/dL (6.5-8.1)
[2024-03-26] MEDS: SODIUM FERRIC GLUCONATE COMPLX 125 MG in SODIUM CHLORIDE 0.9% 100 ML IV SCH (07:31)
[2024-03-27] VITALS (24 sets, daily range): BP systolic 114–160; BP diastolic 45–82; PULSE 56–83; RESP 14–23; TEMP 97.7–98.4; O2SAT 96–100
[2024-03-27 06:11] LABS: BASOPHILS % 0.1 % (0.0-1.0); EOSINOPHILS # (AUTO) 0.3 (0.0-0.4); EOSINOPHILS % 2.9 % (0.0-6.0); HEMATOCRIT 23.4 % (38.2-49.6); HEMOGLOBIN 7.1 g/dL (14.0-18.0); LYMPHOCYTES # (AUTO) 1.2 (1.0-3.2); LYMPHOCYTES % 13.8 % (18.0-39.1); MEAN CORPUSCULAR HEMOGLOBIN 28.1 pg (28-32); MEAN CORPUSCULAR HGB CONC 30.3 g/dL (31-35); MEAN CORPUSCULAR VOLUME 92.5 fL (81-99); MONOCYTES # (AUTO) 0.9 (0.2-0.8); MONOCYTES % 10.3 % (4.4-11.3); NEUTROPHILS # (AUTO) 6.1 (2.1-6.9); NEUTROPHILS % 72.3 % (38.7-80.0); PLATELET COUNT 218 x10e3/uL (140-360); RED BLOOD COUNT 2.53 x10e6/uL (4.3-5.7); RED CELL DISTRIBUTION WIDTH 17.1 % (11.7-14.4); WHITE BLOOD COUNT 8.48 x10e3/uL (4.8-10.8)
[2024-03-27 07:03] LABS: ANION GAP 12.6 mmol/L (8-16); CREATININE, SERUM 2.01 mg/dL (0.72-1.25); POTASSIUM 3.6 mmol/L (3.5-5.1)
[2024-03-27] MEDS: POTASSIUM CHLORIDE 10MEQ/100ML 200 ML IV ONE (09:18)
[2024-03-27] MEDS: SODIUM CHLORIDE 0.9% 250ML 250 ML IV ONE (12:58)
[2024-03-27 17:44] LABS: BASOPHILS % 0.1 % (0.0-1.0); EOSINOPHILS # (AUTO) 0.3 (0.0-0.4); EOSINOPHILS % 3.2 % (0.0-6.0); HEMATOCRIT 26.7 % (38.2-49.6); HEMOGLOBIN 7.8 g/dL (14.0-18.0); LYMPHOCYTES # (AUTO) 1.6 (1.0-3.2); LYMPHOCYTES % 18.4 % (18.0-39.1); MEAN CORPUSCULAR HEMOGLOBIN 27.7 pg (28-32); MEAN CORPUSCULAR HGB CONC 29.2 g/dL (31-35); MEAN CORPUSCULAR VOLUME 94.7 fL (81-99); MONOCYTES # (AUTO) 0.9 (0.2-0.8); NEUTROPHILS # (AUTO) 5.8 (2.1-6.9); NEUTROPHILS % 67.6 % (38.7-80.0); PLATELET COUNT 221 x10e3/uL (140-360); RED BLOOD COUNT 2.82 x10e6/uL (4.3-5.7); RED CELL DISTRIBUTION WIDTH 18.1 % (11.7-14.4); WHITE BLOOD COUNT 8.54 x10e3/uL (4.8-10.8)
[2024-03-28] VITALS (14 sets, daily range): BP systolic 111–152; BP diastolic 55–88; PULSE 57–79; RESP 14–25; TEMP 97.6–98.3; O2SAT 95–100
[2024-03-28 05:16] LABS: BASOPHILS % 0.3 % (0.0-1.0); EOSINOPHILS # (AUTO) 0.3 (0.0-0.4); EOSINOPHILS % 4.7 % (0.0-6.0); HEMATOCRIT 24.6 % (38.2-49.6); HEMOGLOBIN 7.4 g/dL (14.0-18.0); LYMPHOCYTES # (AUTO) 1.4 (1.0-3.2); LYMPHOCYTES % 20.3 % (18.0-39.1); MEAN CORPUSCULAR HEMOGLOBIN 27.5 pg (28-32); MEAN CORPUSCULAR HGB CONC 30.1 g/dL (31-35); MONOCYTES # (AUTO) 0.7 (0.2-0.8); MONOCYTES % 9.2 % (4.4-11.3); NEUTROPHILS # (AUTO) 4.6 (2.1-6.9); NEUTROPHILS % 64.7 % (38.7-80.0); PLATELET COUNT 242 x10e3/uL (140-360); RED BLOOD COUNT 2.69 x10e6/uL (4.3-5.7); RED CELL DISTRIBUTION WIDTH 17.9 % (11.7-14.4); WHITE BLOOD COUNT 7.08 x10e3/uL (4.8-10.8)
[2024-03-28 05:26] LABS: ANION GAP 14.4 mmol/L (8-16); CALCIUM 8.3 mg/dL (8.4-10.2); CREATININE, SERUM 2.15 mg/dL (0.72-1.25)
[2024-03-28 05:34] LABS: MEAN CORPUSCULAR VOLUME 91.4 fL (81-99); POTASSIUM 3.4 mmol/L (3.5-5.1)
[2024-03-28] MEDS: POTASSIUM CHLORIDE 20 MEQ TAB CR PO ONE (12:23)
[2024-03-29] VITALS (13 sets, daily range): BP systolic 90–144; BP diastolic 56–84; PULSE 57–70; RESP 14–19; TEMP 97.6–98; O2SAT 95–100
[2024-03-29 06:06] LABS: EOSINOPHILS # (AUTO) 0.3 (0.0-0.4); EOSINOPHILS % 4.8 % (0.0-6.0); HEMATOCRIT 27.9 % (38.2-49.6); LYMPHOCYTES # (AUTO) 1.5 (1.0-3.2); LYMPHOCYTES % 21.3 % (18.0-39.1); MEAN CORPUSCULAR HEMOGLOBIN 27.3 pg (28-32); MEAN CORPUSCULAR HGB CONC 28.7 g/dL (31-35); MEAN CORPUSCULAR VOLUME 95.2 fL (81-99); MONOCYTES # (AUTO) 0.6 (0.2-0.8); MONOCYTES % 8.3 % (4.4-11.3); NEUTROPHILS # (AUTO) 4.6 (2.1-6.9); PLATELET COUNT 219 x10e3/uL (140-360); RED BLOOD COUNT 2.93 x10e6/uL (4.3-5.7); RED CELL DISTRIBUTION WIDTH 17.9 % (11.7-14.4); WHITE BLOOD COUNT 7.09 x10e3/uL (4.8-10.8)
[2024-03-29 06:29] LABS: ANION GAP 13.9 mmol/L (8-16); CALCIUM 8.1 mg/dL (8.4-10.2); CREATININE, SERUM 2.14 mg/dL (0.72-1.25); POTASSIUM 3.9 mmol/L (3.5-5.1)
[2024-03-29] MEDS: FUROSEMIDE 40 MG TAB PO SCH (08:08)
[2024-03-30] VITALS (15 sets, daily range): BP systolic 121–146; BP diastolic 54–104; PULSE 57–92; RESP 7–20; TEMP 97.2–97.9; O2SAT 94–100
[2024-03-30 06:39] LABS: BASOPHILS % 0.3 % (0.0-1.0); EOSINOPHILS # (AUTO) 0.4 (0.0-0.4); EOSINOPHILS % 5.9 % (0.0-6.0); HEMATOCRIT 25.7 % (38.2-49.6); HEMOGLOBIN 7.8 g/dL (14.0-18.0); LYMPHOCYTES # (AUTO) 1.6 (1.0-3.2); LYMPHOCYTES % 25.5 % (18.0-39.1); MEAN CORPUSCULAR HEMOGLOBIN 28.1 pg (28-32); MEAN CORPUSCULAR HGB CONC 30.4 g/dL (31-35); MEAN CORPUSCULAR VOLUME 92.4 fL (81-99); MONOCYTES # (AUTO) 0.5 (0.2-0.8); MONOCYTES % 7.2 % (4.4-11.3); NEUTROPHILS # (AUTO) 3.8 (2.1-6.9); NEUTROPHILS % 60.6 % (38.7-80.0); PLATELET COUNT 242 x10e3/uL (140-360); RED BLOOD COUNT 2.78 x10e6/uL (4.3-5.7); RED CELL DISTRIBUTION WIDTH 17.5 % (11.7-14.4); WHITE BLOOD COUNT 6.28 x10e3/uL (4.8-10.8)
[2024-03-30 06:52] LABS: ANION GAP 15.9 mmol/L (8-16); CALCIUM 8.1 mg/dL (8.4-10.2); CREATININE, SERUM 2.1 mg/dL (0.72-1.25); POTASSIUM 3.9 mmol/L (3.5-5.1)
[2024-03-30] MEDS: FUROSEMIDE INJ 10 MG/ML 4 ML VIAL IV ONE (11:58)
[2024-03-30] MEDS: FUROSEMIDE 40 MG TAB PO SCH (17:14)
[2024-03-31] VITALS (10 sets, daily range): BP systolic 124–148; BP diastolic 51–69; PULSE 57–100; RESP 15–19; TEMP 97.5–97.6; O2SAT 93–100
[2024-03-31 05:31] LABS: BASOPHILS % 0.1 % (0.0-1.0); EOSINOPHILS # (AUTO) 0.3 (0.0-0.4); EOSINOPHILS % 4.8 % (0.0-6.0); HEMATOCRIT 29.8 % (38.2-49.6); HEMOGLOBIN 8.5 g/dL (14.0-18.0); LYMPHOCYTES # (AUTO) 1.6 (1.0-3.2); LYMPHOCYTES % 22.9 % (18.0-39.1); MEAN CORPUSCULAR HEMOGLOBIN 27.6 pg (28-32); MEAN CORPUSCULAR HGB CONC 28.5 g/dL (31-35); MEAN CORPUSCULAR VOLUME 96.8 fL (81-99); MONOCYTES # (AUTO) 0.7 (0.2-0.8); MONOCYTES % 9.7 % (4.4-11.3); NEUTROPHILS # (AUTO) 4.4 (2.1-6.9); NEUTROPHILS % 61.8 % (38.7-80.0); PLATELET COUNT 214 x10e3/uL (140-360); RED BLOOD COUNT 3.08 x10e6/uL (4.3-5.7); RED CELL DISTRIBUTION WIDTH 17.9 % (11.7-14.4); WHITE BLOOD COUNT 7.11 x10e3/uL (4.8-10.8)
[2024-03-31 05:53] LABS: ALBUMIN 2.6 g/dL (3.5-5.0); ALBUMIN/GLOBULIN RATIO 0.6 (0.8-2.0); ANION GAP 15.6 mmol/L (8-16); BILIRUBIN,TOTAL 0.7 mg/dL (0.2-1.2); CALCIUM 8.6 mg/dL (8.4-10.2); CREATININE, SERUM 2.06 mg/dL (0.72-1.25); POTASSIUM 3.6 mmol/L (3.5-5.1); TOTAL PROTEIN 7.1 g/dL (6.5-8.1)
[2024-03-31] MEDS: FUROSEMIDE INJ 10 MG/ML 4 ML VIAL IV ONE (09:41)
== END 2024-03-31 12:36 | DRG 853 ==
LOC: ER 13:11 → ERHOLD 14:24 → MED/SURG3 18:19 → ICU 03-08 11:15
PROVIDERS: ADMIT Internal Medicine; ATTEND Internal Medicine
PROC: 05HM33Z Insertion of Infusion Device into Right Internal Jugular Vein, Percutaneous Approach (ICD-10-PCS; 2024-03-08)
PROC: B543ZZA Ultrasonography of Right Jugular Veins, Guidance (ICD-10-PCS; 2024-03-08)
PROC: 5A09357 Assistance with Respiratory Ventilation, Less than 24 Consecutive Hours, Continuous Positive Airway Pressure (ICD-10-PCS; 2024-03-09)
PROC: 5A09457 Assistance with Respiratory Ventilation, 24-96 Consecutive Hours, Continuous Positive Airway Pressure (ICD-10-PCS; 2024-03-11)
PROC: 30233N1 Transfusion of Nonautologous Red Blood Cells into Peripheral Vein, Percutaneous Approach (ICD-10-PCS; 2024-03-14)
PROC: 0QSC04Z Reposition Left Lower Femur with Internal Fixation Device, Open Approach (ICD-10-PCS; 2024-03-14)
PROC: 30233N1 Transfusion of Nonautologous Red Blood Cells into Peripheral Vein, Percutaneous Approach (ICD-10-PCS; principal; 2024-03-15)
PROC: 4A043R1 Measurement of Venous Saturation, Peripheral, Percutaneous Approach (ICD-10-PCS; 2024-03-15)
PROC: 4A043R1 Measurement of Venous Saturation, Peripheral, Percutaneous Approach (ICD-10-PCS; 2024-03-20)
PROC: 5A1935Z Respiratory Ventilation, Less than 24 Consecutive Hours (ICD-10-PCS; 2024-03-20)
PROC: 0BH17EZ Insertion of Endotracheal Airway into Trachea, Via Natural or Artificial Opening (ICD-10-PCS; 2024-03-20)
PROC: 4A043R1 Measurement of Venous Saturation, Peripheral, Percutaneous Approach (ICD-10-PCS; 2024-03-21)
PROC: 4A043R1 Measurement of Venous Saturation, Peripheral, Percutaneous Approach (ICD-10-PCS; 2024-03-22)
PROC: 4A043R1 Measurement of Venous Saturation, Peripheral, Percutaneous Approach (ICD-10-PCS; 2024-03-24)
PROC: 30233N1 Transfusion of Nonautologous Red Blood Cells into Peripheral Vein, Percutaneous Approach (ICD-10-PCS; 2024-03-27)
DX: A41.9 Sepsis, unspecified organism (principal); G93.41 Metabolic encephalopathy; J18.9 Pneumonia, unspecified organism; J96.22 Acute and chronic respiratory failure with hypercapnia; J96.21 Acute and chronic respiratory failure with hypoxia; S72.352A Displaced comminuted fracture of shaft of left femur, initial encounter for closed fracture; I50.33 Acute on chronic diastolic (congestive) heart failure; I13.0 Hypertensive heart and chronic kidney disease with heart failure and stage 1 through stage 4 chronic kidney disease, or unspecified chronic kidney disease; E87.29 Other acidosis; N17.9 Acute kidney failure, unspecified; Z68.43 Body mass index [BMI] 50.0-59.9, adult; D62 Acute posthemorrhagic anemia; E66.2 Morbid (severe) obesity with alveolar hypoventilation; J44.0 Chronic obstructive pulmonary disease with (acute) lower respiratory infection; J44.1 Chronic obstructive pulmonary disease with (acute) exacerbation; E44.0 Moderate protein-calorie malnutrition; R65.20 Severe sepsis without septic shock; S00.83XA Contusion of other part of head, initial encounter; E11.22 Type 2 diabetes mellitus with diabetic chronic kidney disease; N18.31 Chronic kidney disease, stage 3a; E03.9 Hypothyroidism, unspecified; E78.5 Hyperlipidemia, unspecified; F17.210 Nicotine dependence, cigarettes, uncomplicated; I49.1 Atrial premature depolarization; T45.515A Adverse effect of anticoagulants, initial encounter; I95.9 Hypotension, unspecified; J44.9 Chronic obstructive pulmonary disease, unspecified; I48.0 Paroxysmal atrial fibrillation; R79.1 Abnormal coagulation profile; E87.5 Hyperkalemia; E11.65 Type 2 diabetes mellitus with hyperglycemia; Z71.3 Dietary counseling and surveillance; M17.12 Unilateral primary osteoarthritis, left knee; M47.9 Spondylosis, unspecified; G89.29 Other chronic pain; Z11.52 Encounter for screening for COVID-19; Z86.711 Personal history of pulmonary embolism; Z79.01 Long term (current) use of anticoagulants; Z79.899 Other long term (current) drug therapy; W01.198A Fall on same level from slipping, tripping and stumbling with subsequent striking against other object, initial encounter; Y92.009 Unspecified place in unspecified non-institutional (private) residence as the place of occurrence of the external cause
CPT/HCPCS: 36415; 36568; 36600; 70450; 71045; 72125; 76000; 76770; 78580; 80048; 80053; 81001; 81050; 82550; 82570; 82607; 82728; 82805; 82948; 83036; 83540; 83605; 83735; 83880; 84100; 84156; 84466; 85014; 85018; 85025; 85610; 85730; 86850; 86900; 86920; 87040; 87086; 93005; 93306; 94002; 94003; 94010; 94640; 94660; 94799; 96372; 99252; 99284; A9540; C1713; J0330; J1100; J1170; J1885; J1940; J2001; J2250; J2270; J2405; J2543; J2795; J2916; J3430; J3480; J7030; J7050; J7799; P9016; U0002